=== PATIENT | male | born 1965 | race Caucasian/White ===

== ENCOUNTER → 2018-04-15 | Outpatient (CLI) | payer OTHER ==
[2018-04-15 10:20] LABS: BASOPHIL % 0.6 % (0-2); PLATELET COUNT 214 x10^3mcL (130-400)
[2018-04-15 10:28] LABS: RED CELL DISTRIBUTION WIDTH 22.3 % (11.5-14.5)
[2018-04-15 10:32] LABS: ALBUMIN 4.1 g/dL (3.4-5.0); ALKALINE PHOSPHATASE 63 U/L (46-116); ALT/SGPT 31 U/L (16-63); AST/SGOT 17 U/L (15-37); BILIRUBIN TOTAL 1.4 mg/dL (0.20-1.00); CALCIUM 9.3 mg/dL (8.5-10.1); CARBON DIOXIDE 30.5 mmol/L (21-32); CHLORIDE SERUM 106 mmol/L (98-107); CREATININE SERUM 0.9 mg/dL (0.7-1.3); GFR1 > 60 mL/min; GLUCOSE SERUM 90 mg/dL (74-106); MAGNESIUM 2.2 mg/dL (1.8-2.4); POTASSIUM SERUM 4.4 mmol/L (3.5-5.1); SODIUM SERUM 139 mmol/L (136-145); TOTAL PROTEIN, SERUM 7.3 g/dL (6.4-8.2)
[2018-04-15 11:13] LABS: ERYTHROCYTE SED RATE 1 mm/hr (0-20)
[2018-04-15 11:16] LABS: C REACTIVE PROTEIN < 0.2 mg/dL (<=0.9)
[2018-04-15 11:32] LABS: ovalocyte/elliptocyte 1+
[2018-04-15 11:33] LABS: rbc morphology (normal/abnorm) ABNORMAL (NORMAL)
[2018-04-16 10:05] LABS: VITAMIN D 25-HYDROXY 28.9 ng/mL (30.0-100.0)
== END | disposition home or self-care (01) ==
LOC: LB 09:01
PROVIDERS: Preventive Medicine Preventive Medicine/Occupational Environmental Medicine
DX: M06.872 Other specified rheumatoid arthritis, left ankle and foot (principal); M06.871 Other specified rheumatoid arthritis, right ankle and foot; M72.2 Plantar fascial fibromatosis; M76.60 Achilles tendinitis, unspecified leg; M20.42 Other hammer toe(s) (acquired), left foot; M20.41 Other hammer toe(s) (acquired), right foot; M79.672 Pain in left foot; M79.671 Pain in right foot; M25.511 Pain in right shoulder
CPT/HCPCS: 82784; 83516; 85613; 86255

== ENCOUNTER → 2018-07-23 | Outpatient (CLI) | payer OTHER ==
[~2018-07-23] MED LIST: ALBUTEROL SULFAT0.51 NEB; AMOXICILLIN875 MG PO; BELSOMRA20 MG PO; FLURAZEPAM PO; HUMIRA PEN40 MG/0.4; HYDROXYCHLOROQ200 MG PO; METHOTREXATE2.5 M2; NATURE'S BLEND F1 MG PO; NYSTATIN100000 U/M; NYSTATIN100000 U/M SS; PREDNISONE1 MG; QVAR REDIHALE10.6 G1; TESSALON PERLE100 MG PO; TRAMADOL HCL50 MG PO
== END | disposition home or self-care (01) ==
LOC: RD 12:13
DX: R05 Cough (principal)

== ENCOUNTER 2018-07-26 11:20 | Inpatient (IN) | payer OTHER ==
[~2018-07-26] VITALS: Ht 177.8 cm; Wt 97.0 kg
[2018-07-26 11:23] VITALS: Ht 177.8 cm; Wt 97.0 kg
--- NOTE | 2018-07-26 12:14 | NUR ---
RT AT BEDSIDE FOR ABG DRAW
[2018-07-26 12:18] LABS: BASOPHIL % 0.1 % (0-2); PLATELET COUNT 181 x10^3mcL (130-400)
[2018-07-26 12:21] LABS: RED CELL DISTRIBUTION WIDTH 17.5 % (11.5-14.5)
[2018-07-26 12:52] LABS: CALCIUM 9.2 mg/dL (8.5-10.1); CARBON DIOXIDE 25.9 mmol/L (21-32); CHLORIDE SERUM 104 mmol/L (98-107); GFR1 > 60 mL/min; GLUCOSE SERUM 95 mg/dL (74-106); POTASSIUM SERUM 4.1 mmol/L (3.5-5.1); SODIUM SERUM 140 mmol/L (136-145)
[2018-07-26 12:57] LABS: ALBUMIN 3.8 g/dL (3.4-5.0); ALKALINE PHOSPHATASE 82 U/L (46-116); ALT/SGPT 37 U/L (16-63); AST/SGOT 22 U/L (15-37); BILIRUBIN TOTAL 0.6 mg/dL (0.20-1.00); TOTAL PROTEIN, SERUM 7.3 g/dL (6.4-8.2)
--- NOTE | 2018-07-26 13:09 | NUR ---
DR DAYAN SLOAN AT BEDSIDE FOR DISCUSSION OF POC AND RESULTS.
--- NOTE | 2018-07-26 14:54 | NUR ---
RECEIVED REPORT FROM SIENA CALLE IN ED. AWAITING PT ARRIVAL TO FLOOR. PT ASSIGNED TO ROOM 223-B AND PLACED ON TELE.
[2018-07-26] MEDS ORDERED: ALBUTEROL SULFAT0.51 NEB (14:57)
[2018-07-26] MEDS ORDERED: AMOXICILLIN875 MG PO (14:58)
[2018-07-26] MEDS ORDERED: TESSALON PERLE100 MG PO (14:58)
[2018-07-26] MEDS ORDERED: PREDNISONE1 MG (14:58)
[2018-07-26] MEDS ORDERED: NYSTATIN100000 U/M (14:58)
[2018-07-26] MEDS ORDERED: METHOTREXATE2.5 M2 (14:59)
[2018-07-26] MEDS ORDERED: NATURE'S BLEND F1 MG PO (15:00)
[2018-07-26] MEDS ORDERED: FLURAZEPAM PO (15:00)
[2018-07-26] MEDS ORDERED: HUMIRA PEN40 MG/0.4 (15:00)
[2018-07-26] MEDS ORDERED: QVAR REDIHALE10.6 G1 (15:00)
[2018-07-26] MEDS ORDERED: HYDROXYCHLOROQ200 MG PO (15:01)
[2018-07-26 15:07] LABS: microscopic required? NO
[2018-07-26 15:08] LABS: FREE T4 0.68 ng/dL (0.76-1.46); FREE THYROXINE INDEX 2.2 ug/dL (1.4-4.5); T4(THYROXINE) 6.6 ug/dL (4.7-13.3)
--- NOTE | 2018-07-26 15:15 | NUR ---
RECEIVED PT VIA [facility] FROM E/D ACCOMPANIED BY RN AND TRANSPORTER. PT A/A/O X 4, CALM, COOPERATIVE. PT ABLE TO AMBULATE FROM [place] TO BED WITH STEADY GAIT. , ALICIA NARVAEZ BY BEDSIDE. ADEBAYO LUNGS WITH EXPIRATORY WHEEZING, CHEST RISING EVENLY, ON 2LNC, 95%, RR 26 UPON ADMISSION, CURRENTLY 18, WITH NON-PRODUCTIVE COUGH. PT STATED THAT HE RECEIVED TAMIFLU X 5 DAYS. ORIENTED PT TO ROOM, BED CONTROLS, AND CALL LIGHT SYSTEM. SIDE RAILS UP X 2, BED IN LOW POSITION, CALL LIGHT WITHIN REACH. WILL ENDORSE TO [place]VA [place].
[2018-07-26 15:20] LABS: UA SPECIFIC GRAVITY >=1.030 (1.005-1.035); urine erythrocyte NEGATIVE (NEGATIVE)
[2018-07-26 15:28] LABS: AMPHETAMINE QUAL UR NONE DETECTED (See below)
[2018-07-26 15:40] LABS: CHOLESTEROL/HDL RATIO 3.2; MAGNESIUM 2.3 mg/dL (1.8-2.4); PHOSPHOROUS 2.9 mg/dL (2.5-4.9)
[2018-07-26 15:45] LABS: T3 TOTAL 0.72 ng/mL
[2018-07-26 16:01] VITALS: BP 122/78
--- NOTE | 2018-07-26 16:06 | NUR ---
IN TO ADMINISTER COUGH SYRUP AND TYLENOL FOR RT HIP PAIN 01/08. RT IN TO SEE PATIENT FOR BREATHING TREATMENT. DR MEJÍA IN TO SEE AND ASSESS PATIENT. DISCUSSED HISTORY OF ILLNESS AND PLAN OF CARE.
[2018-07-26 17:46] VITALS: BP 128/73
[2018-07-26] MEDS ORDERED: BELSOMRA20 MG PO ×2 (18:05→20:06)
--- NOTE | 2018-07-26 19:25 | NUR ---
REPORT FROM IVOR TO FOLLOW WITH PM RESIDENT HOME MEDS TO BE ORDERED AND VERIFIED BY PHARMACY,DR FALL WAS TOLD,NOW PAGED GATE DR SEPULVEDA APPRENTICE STYLIST.WILL FOLLOW UP.
--- NOTE | 2018-07-26 19:32 | NUR ---
REPORT MELISSA RAMIREZ RN. PT RESTING COMFORTABLY IN BED. IV TO LAC IS PATENT AND INFUSING NS @ 100 ML/HR. NO REDNESS OR PAIN. TELE # [address] PT DENIES CHEST PAIN. PT ON O2 2L NC. NO C/O SOB AND NO DISTRESS NOTED. ALL QUESTIONS AND CONCERNS ADDRESSED. ALL CARES ENDORSED.
--- NOTE | 2018-07-26 19:45 | NUR ---
SHIFT REASSESSMENT DONE.PATIENT ALERT AND ORIENTED.O2 AT 2 LITERS.AMBULATORY REPORTED.NS AT 100 CC/ HOUR.IV SITE GOOD LAC.TELE 5 SR.SKIN INTACT.SCD ORDERED.CALL LIGHT IN REACH.
[2018-07-26] MEDS ORDERED: TRAMADOL HCL50 MG PO (20:06)
--- NOTE | 2018-07-26 21:00 | NUR ---
ALL HOME MEDS VERIFIED BY PHARMACY.ULTRAM MED RETURNED TO PATIENT,WE CARRY IT.
[2018-07-26] MEDS ORDERED: NYSTATIN100000 U/M SS (21:02)
[2018-07-26 21:03] VITALS: BP 129/86
--- NOTE | 2018-07-26 21:38 | NUR ---
PATIENT NYSTATIIN ORDERED,BUT WE DO NOT HAVE A STOCK,BRANDI SAID.FAMILY WILL BRING MEDS FROM HOME.PHARMACY AND PATIENT AWARE.
--- NOTE | 2018-07-26 21:42 | NUR ---
PATIENT GIVEN EXTRA KLEENEX,COUGHING PRODUCTIVELY.WHITISH MUCOUS.PATIENT IVF NS AT 100 CC/ HOUR.
--- NOTE | 2018-07-27 04:17 | NUR ---
COUGHING ,RT TX SCHEDULED,WAITING STILL FOR HIS 4 AM HHN.FT MADE AWARE.
--- NOTE | 2018-07-27 05:21 | NUR ---
AM LAB WORKS DONE WITHOUT ANY INCIDENT.PATIENT AM MEDS GIVEN.ATB AND SOLUMEDROL,IV SITE GOOD.I AND O MEASURED.NS AT 100 CC/ HOUR.AMBULATING WELL IN RESTROOM,VOIDING QS,DRINKING WATER WELL ALSO.WILL ENDORSE TO NEXT SHIFT.
[2018-07-27 05:38] VITALS: BP 119/70
[2018-07-27 06:13] LABS: BASOPHIL % 0.1 % (0-2); PLATELET COUNT 185 x10^3mcL (130-400)
[2018-07-27 06:31] LABS: CALCIUM 8.5 mg/dL (8.5-10.1); CARBON DIOXIDE 21.2 mmol/L (21-32); CHLORIDE SERUM 103 mmol/L (98-107); GFR1 > 60 mL/min; GLUCOSE SERUM 173 mg/dL (74-106); PHOSPHOROUS 2.6 mg/dL (2.5-4.9); POTASSIUM SERUM 3.7 mmol/L (3.5-5.1); SODIUM SERUM 137 mmol/L (136-145)
--- NOTE | 2018-07-27 07:35 | NUR ---
RECEIVED PATIENT RESTING IN BED. TELE MONITOR IN PLACE. PT IS AMBULATORY TO [facility] WITH NO ASSIST. NO SOB NOTED, PT ON 2L NC. NS IV INFUSING TO LAC AT 100 ML/HR. IV SITE CDI, NO REDNESS, SWELLING, OR PAIN AT SITE. DENIES PAIN AT THIS TIME. CALL LIGHT WITH IN REACH. BED IN LOW POSITION. WILL CONTINUE TO MONITOR.
[2018-07-27 10:40] VITALS: BP 121/99
--- NOTE | 2018-07-27 11:21 | NUR ---
PATIENT IS UP TAKING A SHOWER. FAX MACHINE REPAIRER MADE AWARE.
--- NOTE | 2018-07-27 12:10 | NUR ---
DIRECT MAIL CLERK MADE AWARE PATIENT IS DONE SHOWERING AND IS BACK ON TELE.
[2018-07-27 14:23] VITALS: BP 115/76
--- NOTE | 2018-07-27 15:15 | NUR ---
PATIENT SEEN AMBULATING IN THE HALLWAY GAIT STEADY. PATIENT C/O PAIN TO MID AND LOWER BACK 01/08, WILL MEDICATED NEEDED FOR PAIN.
--- NOTE | 2018-07-27 15:25 | NUR ---
PATIENT C/O THROBBING PAIN TO MID AND LOWER BACK 01/08. MEDICATED WITH ULTRAM 50 MG PO (SEE eMAR). ALL NEEDS ATTENDED TO. SAFETY PRECAUTIONS MAINTAINED.
[2018-07-27 18:01] VITALS: BP 130/76
--- NOTE | 2018-07-27 18:46 | NUR ---
AT 1843, PATIENT SITTING UP IN BED COUGHING AND STATED FEELING SOB. CALLED RT AND INFORMED ARCELIA RT PATIENT ASKING FOR BREATHING TREATMENT FOR SOB, PER ARCELIA WILL BE IN SHORTLY. AT 1846: PATIENT SITTING UP IN BED COUGHING MEDICATED WITH ROBITUSSIN PO (SEE eMAR). FAMILY AT BEDSIDE. PATIENT STATED ROBITUSSIN DOES NOT WORK AND IS ASKING FOR "PROMETHAZINE" THAT HELPS, WILL NOTIFY ELECTRONICS ENGINEERING TECHNICIAN. IV TO LAC H/L AT THIS TIME FREE FROM REDNESS AND INFILTRATION. PATIENT CALM WITH CARE, ALL NEEDS ATTENDED TO DURING SHIFT. SAFETY PRECAUTIONS MAINTAINED. WILL ENDORSE CARE TO ONCOMING NURSE.
--- NOTE | 2018-07-27 19:35 | NUR ---
PT RESTING IN BED, SIGNIFICANT OTHER AND FAMILY MEMBER AT BEDSIDE. PT AOX4, DENIES DIZZINESS/ REPORTING BAER; WILL MEDICATE PER ORDER. TELE #5 NSR 80. DENIES CP. PULSES PALPABLE BILAT, DENIES NUMBNESS/TINGLING IN FEET. RESP EVEN AND UNLABORED AT REST ON 2LNC, DENIES SOB AT THIS TIME. ABD SOFT, ROUND, DENIES ABD PAIN. PT BRP, DENIES DYSURIA. REPORTS LBM- 07/26 NORMAL. AMBULATORY. PT REPORTS SOME EXACTERBATION/SOB WITH AMBULATION. SKIN IN TACT. IV SITE TO LAC, SALINE LOCKED. PT RECEIVING ANTIBIOTICS + SOLUMEDROL IVP. ALL COMFORT AND SAFETY MEASURES PROVIDED FOR, CALL LIGHT WITHIN REACH, BED IN LOWEST POSITION, WILL CONTINUE TO MONITOR.
[2018-07-27 22:36] VITALS: BP 129/75
--- NOTE | 2018-07-27 23:47 | NUR ---
PT RECEIVING 3RD BREATHING TREATMENT SINCE BEGINNING OF SHIFT, PT INQUIRING IN REGARDS TO SPEAKING TO DR. MILLS D/T LAST ASTHMA EXACERBATION, PT WAS PUT ON SOLUMEDROL IVP Q4H, WILL INQUIRING WITH RESIDENT D/T PT IS RECEIVING FREQ BREATHING TX. RT AT BEDSIDE, PT HAVING PERSISTENT, VIGOROUS COUGHING LEADING TO DRY HEAVING. CALL LIGHT WITHIN REACH, BED IN LOWST POSITION, WILL CONTINUE TO MONITOR.
--- NOTE | 2018-07-28 02:00 | NUR ---
PT RESTING IN BED W/ EYES CLOSED, NO ACUTE DISTRESS NOTED. RESP EVEN AND UNLABORED ON 2LNC, SYMMETRICAL RISE/FALL OF CHEST. CALL LIGHT WITHIN REACH, BED IN LOWST POSITION, WILL CONTINUE TO MONITOR.
--- NOTE | 2018-07-28 05:10 | NUR ---
PT RESTING IN BED, NO ACUTE CHANGES OCCURRING OVERNIGHT. PT MEDICATED X1 WITH PHENERGAN AND PHENERGEN W/ CODEINE, PT REPORTS COUGH MANAGED WELL. PT HAD SEVERAL BREATHING PER RT, PT REPORTS LESSENED EXACERBATION OF ASTHMA UPON AMBULATION THIS AM. PT SOLUMEDROL CHANGED FROM Q6H TO Q4H PER PT REPORTS BETTER CONTROL OF BRONCHOSPASMS. IV SITE REMAINS PATENT TO LAC, SALINE LOCKED AT THIS TIME. ALL COMFORT AND SAFETY MEASURES PROVIDED FOR, CALL LIGHT WITHIN REACH, BED IN LOWEST POSITION, WILL CONTINUE TO MONITOR.
[2018-07-28 06:01] VITALS: BP 148/84
[2018-07-28 06:58] LABS: BASOPHIL % 0.1 % (0-2); PLATELET COUNT 206 x10^3mcL (130-400)
[2018-07-28 07:04] LABS: CALCIUM 8.8 mg/dL (8.5-10.1); CARBON DIOXIDE 24.5 mmol/L (21-32); CHLORIDE SERUM 103 mmol/L (98-107); GFR1 > 60 mL/min; GLUCOSE SERUM 133 mg/dL (74-106); MAGNESIUM 2.1 mg/dL (1.8-2.4); PHOSPHOROUS 3.6 mg/dL (2.5-4.9); POTASSIUM SERUM 3.6 mmol/L (3.5-5.1); SODIUM SERUM 138 mmol/L (136-145)
[2018-07-28 07:05] LABS: RED CELL DISTRIBUTION WIDTH 17.6 % (11.5-14.5)
--- NOTE | 2018-07-28 07:35 | NUR ---
ENDORFSED ALL CARE TO DAYSHIFT NURSE, NO ACUTE DISTRESS NOTED. ALL COMFORT AND SAFETY MEASURES PROVIDED FOR, CALL LIGHT WIHTIN REACH, BED IN LOWEST POSITION.
--- NOTE | 2018-07-28 08:00 | NUR ---
ALERT AND ORIENTED. BREATHING FREELY ON 02 2L NC. ON RT PROTOCOL. TELE # 5 NSR. HL TO RT AC PATENT. DENIES PAIN AT THIS TIME. WHEEZING NOTED MORE ON RIGHT THAN LEFT. INTERMITTENT COUGH. SMALL AMT SECRETIONS. VSS.INDEPENDENT W ADL'S. CALL LIGHT WITHIN REACH.
[2018-07-28 09:42] VITALS: BP 130/73
[2018-07-28 13:06] VITALS: BP 129/84
--- NOTE | 2018-07-28 14:25 | NUR ---
OUT OF SHOWER, TELE # 5 REATTACHED.
[2018-07-28 17:02] VITALS: BP 132/85
[2018-07-28 19:30] VITALS: BP 146/83
--- NOTE | 2018-07-28 19:30 | NUR ---
RECEIVED PT IN BED RESTING WITH SPOUSE AT BEDSIDE. NO ACUTE RESPIRATORY DISTRESS NOTED. DENIES ANY PAIN AT THIS TIME. IV SITE PATENT AND INTACT. BED IN LOWEST POSIITON,CALL LIGHT WITHIN REACH. WILL CONTINUE TO MONITOR.
--- NOTE | 2018-07-28 19:38 | NUR ---
ALERT AND ORIENTED. WALKS IN HALLWAY WITH FAMILY. ON RA. INTERMITTENT COUGH. VSS. TELE # 5 SR. HR INCREASES 105-126 WITH AMBULATION. NO C/O PAIN. RT PROTOCOL. SOLUMEDROL AND ZOSYN IV ABX. SL TO RT FA. INDEPENDENT W ADL'S. CALL LIGHT WITHIN REACH.
--- NOTE | 2018-07-28 19:40 | NUR ---
SEEN PT WALKING THE HALLWAY WITH SPOUSE.PT BACK TO HIS RM RIGHT NOW. NO SOB NOTED. NO INCIDENT HAPPENED. WILL MONITOR.
--- NOTE | 2018-07-28 22:09 | NUR ---
PT C/O PAIN AT HIP AND ANKLE 02/07. MEDICATED TRAMADOL 50MG ORDERED. WILL CONTINEU TO MONITOR.
--- NOTE | 2018-07-29 00:05 | NUR ---
SPO2 91% ON RA. Pt PLACED ON 2L N/C POST HHN TX FOR PRN USE. ABNER YAO.
--- NOTE | 2018-07-29 04:49 | NUR ---
PT REMAINED ASLEEP. NO DISTRESS NOTED. NO S/S OF PAIN. BED IN LOWEST POSITION,CALL LIGHT WITHIN REACH. WILL CONTINUE TO MONITOR.
[2018-07-29 06:29] VITALS: BP 130/61
[2018-07-29 06:57] LABS: BASOPHIL % 0 % (0-2); PLATELET COUNT 221 x10^3mcL (130-400); RED CELL DISTRIBUTION WIDTH 17.4 % (11.5-14.5)
[2018-07-29 07:22] LABS: CALCIUM 8.4 mg/dL (8.5-10.1); CARBON DIOXIDE 24.7 mmol/L (21-32); CHLORIDE SERUM 105 mmol/L (98-107); CREATININE SERUM 0.9 mg/dL (0.7-1.3); GFR1 > 60 mL/min; GLUCOSE SERUM 134 mg/dL (74-106); MAGNESIUM 2.4 mg/dL (1.8-2.4); PHOSPHOROUS 3.4 mg/dL (2.5-4.9); POTASSIUM SERUM 3.3 mmol/L (3.5-5.1); SODIUM SERUM 141 mmol/L (136-145)
--- NOTE | 2018-07-29 07:29 | NUR ---
CARE ENDORSED TO DAY NURSE WILLIAN.
--- NOTE | 2018-07-29 08:00 | NUR ---
ALERT AND ORIENTED. INDEPENDENT W ADL;S. AMBULATES. LUNG SOUNDS DIMINISHED. WHEEZE NOTED LEFT SIDE. ON 02 2L NC. DENIES ANY PAIN. SL TO RT FA PATENT NO S/S INFECTION. VSS. CONTINUES WITH RT, SOLUMEDROL, ZOSYN. CALL LIGHT WITHIN REACH.
[2018-07-29 09:11] VITALS: BP 126/77
[2018-07-29 13:26] VITALS: BP 136/76
[2018-07-29 13:39] VITALS: BP 136/76
[2018-07-29 16:31] VITALS: BP 136/80
--- NOTE | 2018-07-29 20:00 | NUR ---
PT SEEN, RESTING IN BED, ALERT AND ORIENTED, DENIES HEADACHE OR DIZZINESS, BREATHING EVEN AND UNLABORED, LUNG SOUNDS DIMINISHED, ON AND OFF DRY COUGH, ON O2 2L VIA NC WITH NO RESP DISTRESS NOTED, RT PROTOCOL, ON TELE#5 NSR, DENIES CHEST PAIN, PULSES PALPABLE, NO EDEMA NOTED, AMBULATORY WITH STEADY GAIT, ABD SOFT AND FLAT WITH ACTIVE BS, NO BM AT THIS TIME, DENIES ABD PAIN, VOIDING FREELY, NO DISTRESS NOTED, WILL KEEP TO MONITOR.
[2018-07-29 21:04] VITALS: BP 151/93
--- NOTE | 2018-07-29 21:33 | NUR ---
ALL DUE MEDS GIVEN, PT DENIES ANY PAIN OR DISCOMFORT AT THIS TIME.
--- NOTE | 2018-07-30 00:20 | NUR ---
ALL DUE MEDS GIVEN, BREATHING TREATMENT GIVEN BY RT, ALL CARE PROVIDED, NO DISTRESS NOTED, WILL KEEP TO MONITOR.
--- NOTE | 2018-07-30 06:06 | NUR ---
PT AWAKE AND RESTING IN BED, SLEPT MOST OF NIGHT, IVF INFUSING WELL WITH ZOSYN AT THIS TIME, BREATHING EVEN AND UNLABORED ON O2 2L VIA NC WITH NO RESP DISTRESS NOTED, CONDITION NO CHANGE, NO DISTRESS NOTED, WILL KEEP TO MONITOR.
[2018-07-30 06:24] VITALS: BP 139/86
[2018-07-30 06:26] LABS: CALCIUM 8.3 mg/dL (8.5-10.1); CARBON DIOXIDE 27.5 mmol/L (21-32); CHLORIDE SERUM 105 mmol/L (98-107); GFR1 > 60 mL/min; GLUCOSE SERUM 136 mg/dL (74-106); MAGNESIUM 2.4 mg/dL (1.8-2.4); PHOSPHOROUS 3.9 mg/dL (2.5-4.9); POTASSIUM SERUM 3.5 mmol/L (3.5-5.1); SODIUM SERUM 141 mmol/L (136-145)
[2018-07-30 06:46] LABS: PLATELET COUNT 196 x10^3mcL (130-400)
--- NOTE | 2018-07-30 07:05 | NUR ---
BEDSIDE HANDOFF REPORT DONE WITH WILLIAN-RN, ALL QUESTIONS ANSWERED AND CONCERNS ADDRESSED.
--- NOTE | 2018-07-30 07:40 | NUR ---
ALERT AND ORIENTED. AMBULATING IN HALLWAY. COUGHING. ADMIN ROBITUSSIN ORDERED PRN. SL TO RT FA PATENT. DENIES ANY PAIN. INDEPENDENT W ADL'S. VSS. BRP.
[2018-07-30 07:45] LABS: BASOPHIL % 0 % (0-2); RED CELL DISTRIBUTION WIDTH 17.3 % (11.5-14.5)
[2018-07-30 08:38] VITALS: BP 128/77
[2018-07-30 12:55] VITALS: BP 141/88
[2018-07-30] MEDS ORDERED: LEV250 PO (13:46)
[2018-07-30] MEDS ORDERED: FLA500 PO (13:46)
[2018-07-30] MEDS ORDERED: PRE20 PO (13:47)
[2018-07-30] MEDS ORDERED: PHEDML PO (14:45)
[2018-07-30 15:34] VITALS: BP 101/66
--- NOTE | 2018-07-30 15:55 | NUR ---
DC'D TO HOME.F/U JOSH W/ PCP GIVEN. PRESCRIPTIONS GIVEN. IV DC'D TELE # 5 RETURNED TO TELE STATION. ALL DC INSTRUCTIONS REVIEWED WITH AND SIGNED BY PT.
== END 2018-07-30 15:58 | disposition home or self-care (01) | DRG 193 ==
LOC: ED 11:20 → DU 14:02 → MU 14:02 → DU 15:35
PROVIDERS: Emergency Medicine; ADMIT Internal Medicine
PROC: 3E0234Z Introduction of Serum, Toxoid and Vaccine into Muscle, Percutaneous Approach (ICD-10-PCS; principal; 2018-07-30)
DX: J18.9 Pneumonia, unspecified organism (principal); J96.01 Acute respiratory failure with hypoxia; J45.901 Unspecified asthma with (acute) exacerbation; E87.2 Acidosis; M06.9 Rheumatoid arthritis, unspecified; M79.7 Fibromyalgia; F17.210 Nicotine dependence, cigarettes, uncomplicated; D89.9 Disorder involving the immune mechanism, unspecified; E87.6 Hypokalemia; E83.51 Hypocalcemia; Z98.84 Bariatric surgery status; Z79.899 Other long term (current) drug therapy; Z72.89 Other problems related to lifestyle; Z23 Encounter for immunization
CPT/HCPCS: 36600; 83880; 84439; 90732; 94150; J1100; J1956; J2543; J2920; J7030; J7040; J7620; J7626; Q0092; Q0169

== ENCOUNTER 2018-08-03 08:44 | Inpatient (IN) | payer OTHER | END 2018-08-10 10:50 | disposition left against medical advice (07) | LOC: ED 08:44 → DU 11:59 → MU 08-09 17:16 → ED 08:44 → DU 11:59 → MU 08-09 17:16 → ED 08:44 → DU 11:59 → MU 08-09 17:16 → ED 08:44 → DU 11:59 → ED 08:44 → DU 11:59 → ED 08:44 → DU 11:59 → ED 08:44 → DU 11:59 | DX: J45.901 Unspecified asthma with (acute) exacerbation (principal); J96.01 Acute respiratory failure with hypoxia; E44.0 Moderate protein-calorie malnutrition; M06.9 Rheumatoid arthritis, unspecified; R74.0 Nonspecific elevation of levels of transaminase and lactic acid dehydrogenase [LDH]; E83.51 Hypocalcemia; M79.7 Fibromyalgia; Z98.84 Bariatric surgery status; Z68.33 Body mass index [BMI] 33.0-33.9, adult; Z87.891 Personal history of nicotine dependence ==

== ENCOUNTER → 2018-08-14 | Outpatient (CLI) | payer OTHER ==
[~2018-08-14] MED LIST changes: +FLA500 PO; +LEV250 PO; +PEPCID20 MG; +PHEDML PO; +PRE20 PO; +SYMBICORT1 AE3
[2018-08-14 10:11] LABS: microscopic required? NO
[2018-08-14 10:18] LABS: BASOPHIL % 1.7 % (0-2); PLATELET COUNT 208 x10^3mcL (130-400); RED CELL DISTRIBUTION WIDTH 18.9 % (11.5-14.5)
[2018-08-14 10:23] LABS: urine erythrocyte NEGATIVE (NEGATIVE)
[2018-08-14 10:53] LABS: ALKALINE PHOSPHATASE 67 U/L (46-116); ALT/SGPT 108 U/L (16-63); AST/SGOT 33 U/L (15-37); BILIRUBIN TOTAL 0.6 mg/dL (0.20-1.00); CALCIUM 8.3 mg/dL (8.5-10.1); CARBON DIOXIDE 28.3 mmol/L (21-32); CHLORIDE SERUM 103 mmol/L (98-107); CREATININE SERUM 0.8 mg/dL (0.7-1.3); GFR1 > 60 mL/min; GLUCOSE SERUM 82 mg/dL (74-106); POTASSIUM SERUM 3.2 mmol/L (3.5-5.1); SODIUM SERUM 137 mmol/L (136-145)
== END | disposition home or self-care (01) ==
LOC: LB 09:26
DX: J03.90 Acute tonsillitis, unspecified (principal)

== ENCOUNTER → 2018-08-24 | Outpatient (CLI) | payer OTHER | END | disposition home or self-care (01) | LOC: LB 11:17 | DX: J45.909 Unspecified asthma, uncomplicated (principal) | CPT/HCPCS: 86003 ==

== ENCOUNTER → 2018-09-06 | Outpatient (CLI) | payer OTHER | END | disposition home or self-care (01) | LOC: RD 13:21 | DX: R07.9 Chest pain, unspecified (principal); R05 Cough ==

== ENCOUNTER 2018-09-18 07:22 | Day surgery (SDC) | payer OTHER ==
[2018-09-15 13:48] LABS: CARBON DIOXIDE 28.3 mmol/L (21-32); CHLORIDE SERUM 106 mmol/L (98-107); CREATININE SERUM 0.9 mg/dL (0.7-1.3); GFR1 > 60 mL/min; GLUCOSE SERUM 83 mg/dL (74-106); POTASSIUM SERUM 4.2 mmol/L (3.5-5.1); SODIUM SERUM 141 mmol/L (136-145)
[2018-09-15 13:56] LABS: BASOPHIL % 0.5 % (0-2); PLATELET COUNT 230 x10^3mcL (130-400)
[2018-09-15 13:58] LABS: RED CELL DISTRIBUTION WIDTH 18.6 % (11.5-14.5)
[~2018-09-18] VITALS: Ht 177.8 cm; Wt 93.0 kg
[2018-09-18 07:38] VITALS: BP 114/55
[2018-09-18 13:59] VITALS: BP 109/79
== END 2018-09-18 12:35 | disposition home or self-care (01) ==
LOC: DS 07:22 → OR 09:00 → DS 12:35
PROVIDERS: Internal Medicine
PROC: 0B9D8ZX Drainage of Right Middle Lung Lobe, Via Natural or Artificial Opening Endoscopic, Diagnostic (ICD-10-PCS; 2018-09-18)
PROC: 0B9H8ZX Drainage of Lung Lingula, Via Natural or Artificial Opening Endoscopic, Diagnostic (ICD-10-PCS; 2018-09-18)
PROC: 0B9F8ZX Drainage of Right Lower Lung Lobe, Via Natural or Artificial Opening Endoscopic, Diagnostic (ICD-10-PCS; 2018-09-18)
PROC: 0BC68ZZ Extirpation of Matter from Right Lower Lobe Bronchus, Via Natural or Artificial Opening Endoscopic (ICD-10-PCS; 2018-09-18)
PROC: 0BC48ZZ Extirpation of Matter from Right Upper Lobe Bronchus, Via Natural or Artificial Opening Endoscopic (ICD-10-PCS; 2018-09-18)
PROC: 0BCD8ZZ Extirpation of Matter from Right Middle Lung Lobe, Via Natural or Artificial Opening Endoscopic (ICD-10-PCS; 2018-09-18)
PROC: 0BC38ZZ Extirpation of Matter from Right Main Bronchus, Via Natural or Artificial Opening Endoscopic (ICD-10-PCS; 2018-09-18)
PROC: 0B9J8ZX Drainage of Left Lower Lung Lobe, Via Natural or Artificial Opening Endoscopic, Diagnostic (ICD-10-PCS; principal; 2018-09-18 09:00)
DX: J98.09 Other diseases of bronchus, not elsewhere classified (principal); J45.901 Unspecified asthma with (acute) exacerbation; M06.9 Rheumatoid arthritis, unspecified; R91.8 Other nonspecific abnormal finding of lung field; M79.7 Fibromyalgia; F32.9 Major depressive disorder, single episode, unspecified
CPT/HCPCS: 87116; 87206; J0330; J0690; J2405; J2704; J3010; J7120

== ENCOUNTER → 2018-10-11 | Day surgery (SDC) | payer OTHER ==
[~2018-10-11] VITALS: Ht 177.8 cm; Wt 93.0 kg
[2018-10-11 06:35] VITALS: BP 135/81
[2018-10-11 09:25] VITALS: BP 131/93
== END | disposition home or self-care (01) ==
LOC: DS 06:09 → OR 07:30
PROVIDERS: Anesthesiology Pain Medicine
PROC: 3E0R3BZ Introduction of Anesthetic Agent into Spinal Canal, Percutaneous Approach (ICD-10-PCS; 2018-10-11)
PROC: 3E0R33Z Introduction of Anti-inflammatory into Spinal Canal, Percutaneous Approach (ICD-10-PCS; principal; 2018-10-11 07:30)
DX: M51.16 Intervertebral disc disorders with radiculopathy, lumbar region (principal); G89.4 Chronic pain syndrome; M79.7 Fibromyalgia; M06.9 Rheumatoid arthritis, unspecified; Z68.30 Body mass index [BMI] 30.0-30.9, adult
CPT/HCPCS: 77003; J1100; J2001; J2250; J3010; J3301; J3490; Q9967

== ENCOUNTER → 2018-11-17 | Outpatient (CLI) | payer OTHER | END | disposition home or self-care (01) | LOC: MI 12:47 | PROC: BR39ZZZ Magnetic Resonance Imaging (MRI) of Lumbar Spine (ICD-10-PCS; principal; 2018-11-17) | PROC: BR30ZZZ Magnetic Resonance Imaging (MRI) of Cervical Spine (ICD-10-PCS; 2018-11-17) | DX: M54.2 Cervicalgia (principal); M54.5 Low back pain | CPT/HCPCS: A9577 ==

== ENCOUNTER → 2018-12-07 | Outpatient (CLI) | payer OTHER | END | disposition home or self-care (01) | LOC: CT 12-01 09:00 | PROC: BW24ZZZ Computerized Tomography (CT Scan) of Chest and Abdomen (ICD-10-PCS; principal; 2018-12-07) | DX: R91.1 Solitary pulmonary nodule (principal) ==

== ENCOUNTER → 2019-06-11 | Outpatient (CLI) | payer OTHER | END | disposition home or self-care (01) | LOC: MI 15:13 | PROC: BR30ZZZ Magnetic Resonance Imaging (MRI) of Cervical Spine (ICD-10-PCS; principal; 2019-06-11) | DX: M54.2 Cervicalgia (principal) ==

== ENCOUNTER → 2019-06-14 | Outpatient (CLI) | payer OTHER ==
[2019-06-14 15:57] LABS: microscopic required? NO
[2019-06-14 16:15] LABS: BASOPHIL % 0.4 % (0-2); PLATELET COUNT 193 x10^3mcL (130-400)
[2019-06-14 16:17] LABS: urine erythrocyte NEGATIVE (NEGATIVE)
[2019-06-14 16:35] LABS: ALBUMIN 3.9 g/dL (3.4-5.0); ALKALINE PHOSPHATASE 69 U/L (46-116); ALT/SGPT 30 U/L (16-63); AST/SGOT 15 U/L (15-37); BILIRUBIN TOTAL 0.5 mg/dL (0.20-1.00); CALCIUM 8.6 mg/dL (8.5-10.1); CHLORIDE SERUM 105 mmol/L (98-107); CHOLESTEROL 191 mg/dL (<200); CHOLESTEROL/HDL RATIO 4.2; CREATININE SERUM 0.9 mg/dL (0.7-1.3); GFR1 > 60 mL/min; GLUCOSE SERUM 82 mg/dL (74-106); HDL CHOLESTEROL 45 mg/dL (40-60); SODIUM SERUM 141 mmol/L (136-145); TOTAL PROTEIN, SERUM 6.8 g/dL (6.4-8.2)
[2019-06-14 16:53] LABS: TRIGLYCERIDES 131 mg/dL (<150)
[2019-06-14 17:03] LABS: ERYTHROCYTE SED RATE 3 mm/hr (0-20)
== END | disposition home or self-care (01) ==
LOC: LB 15:25
DX: M06.9 Rheumatoid arthritis, unspecified (principal)
CPT/HCPCS: 84153; 86431